=== PATIENT | male | born 1960 | race Two or more races ===

== ENCOUNTER 2017-07-04 16:25 | Emergency (ER) | payer OTHER ==
[~2017-07-04] VITALS: Ht 172.7 cm; Wt 88.5 kg
== END 2017-07-04 19:05 | disposition home or self-care (01) ==
LOC: ER 16:25
DX: R19.02 Left upper quadrant abdominal swelling, mass and lump (principal)

== ENCOUNTER 2017-10-24 09:50 | Emergency (ER) | payer OTHER ==
[~2017-10-24] VITALS: Ht 175.3 cm; Wt 94.3 kg
[2017-10-24] MEDS ORDERED: GABAPENTIN800 MG (10:11)
[2017-10-24] MEDS ORDERED: SYNTHROID75 MCG (10:11)
[2017-10-24] MEDS ORDERED: AVAPRO300 MG (10:11)
[2017-10-24] MEDS ORDERED: TOPROL XL50 M1 (10:12)
[2017-10-24] MEDS ORDERED: PROGRAF0.5 MG (10:12)
[2017-10-24] MEDS ORDERED: HUMULIN N100 UNIT/2 (10:13)
[2017-10-24] MEDS ORDERED: INDOMETHACIN50 MG PO (13:30)
[2017-10-24] MEDS ORDERED: COLCHICINE0.6 M1 PO (13:30)
== END 2017-10-24 13:50 | disposition home or self-care (01) ==
LOC: ER 09:50
DX: M10.072 Idiopathic gout, left ankle and foot (principal); M10.071 Idiopathic gout, right ankle and foot; M10.031 Idiopathic gout, right wrist

== ENCOUNTER 2018-08-09 15:07 | Emergency (ER) | payer OTHER ==
[~2018-08-09] VITALS: Ht 172.7 cm; Wt 90.7 kg
[~2018-08-09 15:07] MED LIST: AVAPRO300 MG; COLCHICINE0.6 M1 PO; GABAPENTIN800 MG; HUMULIN N100 UNIT/2; INDOMETHACIN50 MG PO; PROGRAF0.5 MG; SYNTHROID75 MCG; TOPROL XL50 M1
== END 2018-08-09 21:17 | disposition home or self-care (01) ==
LOC: ER 15:07
DX: K29.70 Gastritis, unspecified, without bleeding (principal); G44.209 Tension-type headache, unspecified, not intractable

== ENCOUNTER 2018-09-18 13:10 | Outpatient (CLI) | payer OTHER | END 2018-09-18 13:11 | disposition home or self-care (01) | LOC: SONOGRAMA 13:10 → MAMO-SONO 14:15 | DX: R80.8 Other proteinuria (principal); E11.29 Type 2 diabetes mellitus with other diabetic kidney complication ==

== ENCOUNTER 2019-07-16 09:44 | Emergency (ER) | payer OTHER ==
[~2019-07-16] VITALS: Ht 175.3 cm; Wt 97.5 kg
[2019-07-16] MEDS ORDERED: CARDURA XL4 MG (09:58)
[2019-07-16] MEDS ORDERED: AMOX1TAB5 PO (14:30)
[2019-07-16] MEDS ORDERED: PULMICORT FLEX90 MCG IH (14:30)
[2019-07-16] MEDS ORDERED: MUCINEX DM ER1 EAC1 PO (14:30)
[2019-07-16] MEDS ORDERED: MONTELUKAST SODI4 M1 PO (14:31)
[2019-07-16] MEDS ORDERED: TESSALON PERLE100 MG PO (14:31)
== END 2019-07-16 17:43 | disposition home or self-care (01) ==
LOC: ER 09:44
DX: J06.9 Acute upper respiratory infection, unspecified (principal); J22 Unspecified acute lower respiratory infection

== ENCOUNTER → 2020-10-14 | Emergency (ER) | payer OTHER ==
[~2020-10-14] VITALS: Ht 175.3 cm; Wt 97.5 kg
[~2020-10-14] MED LIST changes: +AMOX1TAB5 PO; +CARDURA XL4 MG; +MILLIPRED DP5 M1 PO; +MONTELUKAST SODI4 M1 PO; +MUCINEX DM ER1 EAC1 PO; +PULMICORT FLEX90 MCG IH; +TESSALON PERLE100 MG PO
== END | disposition left against medical advice (07) ==
LOC: ER 10:52
DX: K85.80 Other acute pancreatitis without necrosis or infection (principal); R10.84 Generalized abdominal pain; R19.7 Diarrhea, unspecified; R11.11 Vomiting without nausea; E11.9 Type 2 diabetes mellitus without complications; I10 Essential (primary) hypertension; Z94.4 Liver transplant status; Z03.818 Encounter for observation for suspected exposure to other biological agents ruled out; Z79.4 Long term (current) use of insulin